=== PATIENT | female | born 1990 | race Caucasian/White ===

== ENCOUNTER 2019-05-27 10:33 | Emergency (ER) | payer BC, OTHER ==
[~2019-05-27] VITALS: Ht 152.4 cm; Wt 70.5 kg
[2019-05-27] MEDS ORDERED: NON-325T5 PO (10:41)
[2019-05-27 11:26] LABS: BASO % 0.1 % (0.0-1.0); HEMOGLOBIN 9.7 g/dl (12.0-15.5); LYMPH # 1.7 10^3/uL (1.5-6.5); MEAN CORPUSCULAR HEMOGLOBIN 33.3 pg (27.0-33.0); MEAN CORPUSCULAR HGB CONC 34.6 g/dl (32.0-36.5); MEAN CORPUSCULAR VOLUME 96.2 fl (80.0-96.0); MONO # 0.9 10^3/uL (0.0-0.8); MONO % 5.1 % (0.0-5.0); NEUTROPHILS # 14.2 10^3/uL (1.8-7.7); NEUTROPHILS % 84.3 % (36.0-66.0); PLATELET COUNT, AUTOMATED 215 10^3/uL (150-450); RED BLOOD COUNT 2.91 10^6/uL (4.00-5.40); WHITE BLOOD COUNT 16.8 10^3/uL (4.0-10.0)
[2019-05-27 11:35] LABS: APPEARANCE, URINE CLEAR (CLEAR); BACTERIA, URINE AUTO NEGATIVE (NEGATIVE); BILIRUBIN, URINE AUTO NEGATIVE (NEGATIVE); BLOOD, URINE BLOOD NEGATIVE (NEGATIVE); COLOR, URINE STRAW (YELLOW); GLUCOSE, URINE (UA) AUTO NEGATIVE (NEGATIVE); KETONE, URINE AUTO TRACE mg/dL (NEGATIVE); LEUKOCYTE ESTERASE, URINE AUTO NEGATIVE (NEGATIVE); NITRITE, URINE AUTO NEGATIVE (NEGATIVE); PROTEIN, URINE AUTO NEGATIVE (NEGATIVE); RBC, URINE AUTO 1 /HPF (0-3); SPECIFIC GRAVITY URINE AUTO 1.006 (1.002-1.035); SQUAMOUS EPITHELIAL CELL UR AU 1 /HPF (0-6); UROBILINOGEN, URINE AUTO 0.2 mg/dL (0.0-2.0); WBC, URINE AUTO 4 /HPF (0-3)
[2019-05-27 12:12] LABS: BLOOD UREA NITROGEN 8 MG/DL (7-18); CALCIUM LEVEL 8.8 MG/DL (8.5-10.1); CARBON DIOXIDE LEVEL 24 MEQ/L (21-32); CHLORIDE LEVEL 99 MEQ/L (98-107); CREATININE FOR GFR 0.64 MG/DL (0.55-1.30); GLOMERULAR FILTRATION RATE > 60.0 (>60); GLUCOSE, FASTING 154 MG/DL (70-100); HCG, SERUM QUANTITATIVE 18417 MIU/ML; POTASSIUM SERUM 3.6 MEQ/L (3.5-5.1); SODIUM LEVEL 131 MEQ/L (136-145)
[2019-05-27 13:23] LABS: ALBUMIN 3.8 GM/DL (3.2-5.2); ALT/SGPT 22 U/L (12-78); AMYLASE 35 U/L (25-115); BILIRUBIN,DIRECT 0.2 MG/DL (0.0-0.2); BILIRUBIN,TOTAL 0.8 MG/DL (0.2-1.0); LIPASE 58 U/L (73-393); TOTAL PROTEIN 6.8 GM/DL (6.4-8.2)
[2019-05-27 14:23] VITALS: BP 123/62
[2019-06-05] MEDS ORDERED: PERCOCET PO (10:00)
== END 2019-05-27 14:24 | disposition home or self-care (01) ==
LOC: M ED 10:33
DX: K59.00 Constipation, unspecified (principal); D72.829 Elevated white blood cell count, unspecified

== ENCOUNTER → 2019-05-31 | Outpatient (CLI) | payer OTHER ==
[~2019-05-31] MED LIST: IBUP80TA PO; NON-325T5 PO; PERCOCET PO; PRENTAB53 PO; VITA100T98 PO
== END ==
LOC: M LAB 11:17
PROVIDERS: ATTEND Advanced Practice Midwife
DX: N91.1 Secondary amenorrhea (principal)

== ENCOUNTER → 2019-06-02 | Outpatient (CLI) | payer OTHER | LOC: M LAB 11:47 | PROVIDERS: ATTEND Advanced Practice Midwife | DX: N91.1 Secondary amenorrhea (principal) ==

== ENCOUNTER 2019-06-04 10:20 | Day surgery (SDC) | payer OTHER ==
[~2019-06-04] VITALS: Ht 152.4 cm; Wt 72.2 kg
[2019-06-04] VITALS (7 sets, daily range): BP systolic 113–132; BP diastolic 70–78
[~2019-06-04 10:20] MED LIST changes: -IBUP80TA PO; -PERCOCET PO; -PRENTAB53 PO; -VITA100T98 PO
[2019-06-04] MEDS ORDERED: NS 1,000 ML IV ONE (10:45)
[2019-06-04 10:53] LABS: BASO % 0.1 % (0.0-1.0); HEMATOCRIT 13.2 % (36.0-47.0); LYMPH # 2.3 10^3/uL (1.5-5.0); LYMPH % 9.6 % (24.0-44.0); MEAN CORPUSCULAR HEMOGLOBIN 34.6 pg (27.0-33.0); MEAN CORPUSCULAR HGB CONC 34.1 g/dl (32.0-36.5); MEAN CORPUSCULAR VOLUME 101.5 fl (80.0-96.0); MONO # 1.1 10^3/uL (0.0-0.8); MONO % 4.9 % (0.0-5.0); NEUTROPHILS # 19.8 10^3/uL (1.5-8.5); NEUTROPHILS % 84.4 % (36.0-66.0); PLATELET COUNT, AUTOMATED 274 10^3/uL (150-450); WHITE BLOOD COUNT 23.5 10^3/uL (4.0-10.0)
[2019-06-04] MEDS ORDERED: fentaNYL 250 MCG/5 ML INJECTION (J3010) As Ordered ONE (10:57)
[2019-06-04] MEDS ORDERED: MIDAZOLAM INJ 2 MG/2 ML VIAL (J2250) As Ordered ONE (10:58)
[2019-06-04] MEDS ORDERED: LIDOCAINE 2% INJ 100 MG/5 ML SDV (FOR ANES.) As Ordered ONE ×2 (10:59→11:00)
[2019-06-04] MEDS ORDERED: ETOMIDATE INJ 20MG/10ML VIAL As Ordered ONE (10:59)
[2019-06-04 11:02] LABS: HEMOGLOBIN 4.5 g/dl (12.0-15.5)
[2019-06-04] MEDS ORDERED: SUCCINYLCHOLINE 100 MG/5 ML SYRINGE (J0330) As Ordered ONE (11:02)
[2019-06-04] MEDS ORDERED: PROPOFOL 200 MG/20 ML VIAL As Ordered ONE (11:02)
[2019-06-04 11:09] LABS: INR 1.13; PROTHROMBIN TIME 14.2 SECONDS (11.8-14.0)
[2019-06-04 11:10] LABS: PARTIAL THROMBOPLASTIN TIME 22.4 SECONDS (25.0-38.4)
[2019-06-04] MEDS ORDERED: ROCURONIUM BROMIDE 50 MG/5 ML VIAL As Ordered ONE (11:27)
[2019-06-04] MEDS ORDERED: BUPIVACAINE HCL 0.25% 30 ML VIAL As Ordered ONE (11:34)
[2019-06-04] MEDS ORDERED: CALCIUM CHLORIDE 10% 1 GM/10 ML SYR As Ordered ONE (11:35)
--- NOTE | 2019-06-04 11:46 | REP ---
Clinical: with pelvic pain and vaginal bleeding. Technique: Transabdominal and transvaginal first trimester obstetrical ultrasound with color evaluation. Findings: Bladder is unremarkable and currently measures approximately 9.1 x 8.7 x 4.7 cm. Anteverted uterus measures 7.2 x 3.4 x 4.3 cm. Endometrial complex measures 12 mm thickness and a small amount of endocervical fluid is identified. No intrauterine identified. Left ovary is normal in appearance and vascularity without torsion and measures 3.3 x 2.6 x 2.4 cm (RI 0.40). The right ovary is not visualized and there is a large amount of complex possibly hemorrhagic fluid seen within the pelvis. Impression: Given the patient's history of positive test and large complex presumed hemorrhagic fluid in the pelvis, ruptured ectopic cannot be excluded and requires immediate attention. Findings confirmed and discussed with ER. Electronically Signed by Robbin Meadows MD 06/04/2019 11:38 A
[2019-06-04] MEDS ORDERED: ONDANSETRON 4MG/2ML VIAL (J2405) As Ordered ONE (12:12)
[2019-06-04] MEDS ORDERED: METOCLOPRAMIDE INJ 10MG/2ML VIAL (J2765) As Ordered ONE (12:12)
[2019-06-04] MEDS ORDERED: ACETAMINOPHEN 1000MG 100ML IV BTL (OFIRMEV) (J0131 PER 10MG) As Ordered ONE (12:13)
[2019-06-04] MEDS ORDERED: SUGAMMADEX SODIUM 500 MG/5 ML VIAL (BRIDION) As Ordered ONE (12:13)
[2019-06-04] MEDS ORDERED: diphenhydrAMINE INJ 50MG/ML VIAL (J1200) As Ordered ONE (12:14)
[2019-06-04] MEDS ORDERED: HYDROmorphone HCL 2 MG/ML 1ML VIAL (J1170) As Ordered ONE (12:43)
--- NOTE | 2019-06-04 13:40 | REP ---
Clinical: Emergent surgical procedure without surgical count. Technique: Two portable intraoperative views of the abdomen and pelvis. Findings: Postoperative changes including subcutaneous emphysema appreciated. The bowel gas pattern is nonspecific. No organomegaly. Skeletal structures are intact. No residual foreign body material noted. Impression: No residual foreign body material noted. Electronically Signed by Robbin Meadows MD 06/04/2019 01:31 P
[2019-06-04] MEDS ORDERED: MEPERIDINE INJ 25 MG/ML VIAL (J2175) As Ordered ONE (13:44)
[2019-06-04] MEDS: MEPERIDINE INJ 25 MG/ML VIAL (J2175) IV PRN ×2 (13:45→14:02)
[2019-06-04] MEDS ORDERED: PERCOCET 5MG/325MG TAB PO PRN ×2 (14:00→14:30)
[2019-06-04] MEDS ORDERED: HYDROMORPHONE HCL 0.5 MG/ 0.5 ML SYRINGE (J1170 PER 1) IV PRN (14:00)
[2019-06-04] MEDS ORDERED: LR 1,000 ML IV SCH (14:00)
[2019-06-04] MEDS ORDERED: fentaNYL 100 MCG/2 ML INJECTION (J3010) IV PRN (14:00)
[2019-06-04] MEDS ORDERED: ONDANSETRON 4MG/2ML VIAL (J2405) IV PRN ×2 (14:00→14:30)
[2019-06-04] MEDS ORDERED: PERCOCET 5MG/325MG TAB As Ordered ONE (14:01)
[2019-06-04 14:06] LABS: HEMATOCRIT 31.6 % (36.0-47.0); MEAN CORPUSCULAR HEMOGLOBIN 31.6 pg (27.0-33.0); MEAN CORPUSCULAR HGB CONC 34.2 g/dl (32.0-36.5); MEAN CORPUSCULAR VOLUME 92.4 fl (80.0-96.0); RED BLOOD COUNT 3.42 10^6/uL (4.00-5.40); WHITE BLOOD COUNT 13.3 10^3/uL (4.0-10.0)
[2019-06-04 14:16] LABS: HEMOGLOBIN 10.8 g/dl (12.0-15.5)
[2019-06-04 14:24] LABS: INR 1.17; PROTHROMBIN TIME 14.6 SECONDS (11.8-14.0)
[2019-06-04] MEDS: LR 1,000 ML IV SCH ×2 (14:30→18:28)
[2019-06-04] MEDS ORDERED: PROMETHAZINE INJ 25 MG/ML VIAL (J2550) IV PRN (14:30)
[2019-06-04 14:33] LABS: PLATELET COUNT, AUTOMATED 76 10^3/uL (150-450)
[2019-06-04 14:39] LABS: ALBUMIN 2.7 GM/DL (3.2-5.2); ALT/SGPT 16 U/L (12-78); BILIRUBIN,TOTAL 0.9 MG/DL (0.2-1.0); BLOOD UREA NITROGEN 14 MG/DL (7-18); CALCIUM LEVEL 7.1 MG/DL (8.5-10.1); CARBON DIOXIDE LEVEL 19 MEQ/L (21-32); CHLORIDE LEVEL 107 MEQ/L (98-107); CREATININE FOR GFR 0.83 MG/DL (0.55-1.30); GLOMERULAR FILTRATION RATE > 60.0 (>60); GLUCOSE, FASTING 139 MG/DL (70-100); SODIUM LEVEL 136 MEQ/L (136-145); TOTAL PROTEIN 4.8 GM/DL (6.4-8.2)
[2019-06-04] MEDS ORDERED: PRENTAB53 PO (16:10)
[2019-06-04] MEDS ORDERED: VITA100T98 PO (16:10)
[2019-06-04] MEDS: KETOROLAC 30 MG/ML VIAL (J1885) IV SCH ×2 (16:28→22:01)
[2019-06-04] MEDS: DOCUSATE SODIUM 100 MG CAP PO SCH (22:00)
[2019-06-05 00:30] VITALS: BP 107/59
--- NOTE | 2019-06-05 00:35 | ECGEPIP ---
[facility] - ED Test Date: 2019-06-04 Pat Name: LINDA REARDON Department: Room: - Gender: Female Improvement Specialist: nas : 1990 Requested By: Cortney Juarez Order Number: [id number] Reading MD: Jesse Metz Measurements Intervals [place] Rate: 132 P: 49 NE: 128 QRS: 63 QRSD: 70 T: 32 QT: 293 QTc: 434 Interpretive Statements SINUS TACHYCARDIA Comparison tracing not on file Electronically Signed on 06-05-2019 0:35:30 EDT by Jesse Metz
[2019-06-05 04:00] VITALS: BP 115/62
[2019-06-05] MEDS: KETOROLAC 30 MG/ML VIAL (J1885) IV SCH ×2 (04:08→09:25)
[2019-06-05] MEDS: LR 1,000 ML IV SCH (06:30)
[2019-06-05 08:04] LABS: BASO % 0.2 % (0.0-1.0); EOS % 0.1 % (0.0-3.0); HEMATOCRIT 26.2 % (36.0-47.0); HEMOGLOBIN 9.3 g/dl (12.0-15.5); LYMPH # 2.3 10^3/uL (1.5-5.0); LYMPH % 20.1 % (24.0-44.0); MEAN CORPUSCULAR HEMOGLOBIN 32.1 pg (27.0-33.0); MEAN CORPUSCULAR HGB CONC 35.5 g/dl (32.0-36.5); MEAN CORPUSCULAR VOLUME 90.3 fl (80.0-96.0); MONO # 0.9 10^3/uL (0.0-0.8); MONO % 7.7 % (0.0-5.0); NEUTROPHILS # 8.3 10^3/uL (1.5-8.5); NEUTROPHILS % 71.3 % (36.0-66.0); PLATELET COUNT, AUTOMATED 125 10^3/uL (150-450); WHITE BLOOD COUNT 11.6 10^3/uL (4.0-10.0)
[2019-06-05 08:11] VITALS: BP 108/60
[2019-06-05] MEDS: DOCUSATE SODIUM 100 MG CAP PO SCH (09:24)
[2019-06-05] MEDS ORDERED: PERCOCET PO (10:00)
[2019-06-05] MEDS ORDERED: IBUP80TA PO (10:00)
--- NOTE | 2019-06-05 10:58 | RO ---
DATE OF PROCEDURE: 06/04/2019 PREOPERATIVE DIAGNOSIS: Ruptured ectopic , acute abdomen. POSTOPERATIVE DIAGNOSES: 1. Ruptured right ectopic . 2. Hemoperitoneum. 3. Pelvic adhesive disease. PROCEDURE PERFORMED: Operative laparoscopy with right salpingectomy and removal of ectopic . SURGEON: Dr. Nolberto San [employer] SET UP OPERATOR VERTICAL: None. ANESTHESIA: General endotracheal. SPECIMEN SENT TO PATHOLOGY: Right fallopian tube and ectopic . ESTIMATED BLOOD LOSS: Approximately 2 liters total, between preoperative and intraoperative blood loss. FLUIDS REPLACED: 3500 mL lactated Ringer's. DRAINS: Toledo catheter, 275 mL urine output. COMPLICATIONS: None. BLOOD PRODUCTS ADMINISTERED: 6 units packed red blood cells, 3 units of fresh frozen plasma. PREOPERATIVE ANTIBIOTICS: None indicated. INTRAOPERATIVE FINDINGS: 1. Obliterated right fallopian tube that was actively bleeding. 2. Ectopic that had extruded into the posterior cul-de-sac. 3. Severe pelvic adhesions encompassing both the right and left adnexa, however, the left fallopian tube and left ovary appeared normal. No hydrosalpinx on the left side and the right ovary was normal in appearance as well. Sidewall adhesions of the bowel were also noted on both the right and left side. 4. The uterus was normal size, shape and contour. INDICATION: The patient is a 28-year-old, (G) 1 who presented with an acute abdomen in the emergency department on 06/04/19. The patient was known to be in the first trimester by her LMP. She was severely tachycardiac at 140s to 160 beats per minute. However, her blood pressure remained normotensive and she was alert and oriented, and mentating well. She did have severe pallor on presentation. On abdominal exam, she did not tolerate the slightest touch to her abdomen in all four quadrants. A bedside ultrasound was performed and free fluid was seen. A expedited blood transfusion was activated. The patient was emergently prepped for the operating room. Informed consent was obtained. DESCRIPTION OF PROCEDURE: The patient was counseled and consented on the risks, benefits, indications, and alternatives of the procedure. Informed consent was obtained. She was taken to the operating room with an IV running and placed on the operating table in dorsal supine position. General anesthesia was administered and the airway secured without any difficulty. She was placed in the low lithotomy position. She was prepared and draped in a normal sterile fashion. A time-out was performed per protocol. Attention was turned to the pelvis. Toledo catheter was placed under sterile conditions. Sterile speculum was placed with good visualization of the cervix. The anterior lip of the cervix was grasped with ring forceps and downward traction was applied. The uterus was then sequentially dilated with Jesse dilators up to a #16. The ZUMI uterine manipulator was placed into the uterus without any difficulty. The ring forcep was removed. The sterile speculum was removed. A glove switch was performed. Attention was turned to the abdomen. 0.25% Marcaine was injected into the umbilicus. A 10 mm umbilical incision was made. Through this incision, a Veress needle was placed into the intraperitoneal cavity. Intraperitoneal placement was confirmed with ease of flow of normal saline, negative return on aspiration and a positive drop test. Opening pressure was 2 mmHg. The abdomen was insufflated with 2 liters of gas. The Veress needle was removed. A size 12 [place] laparoscopic trocar was placed through this umbilical incision into the intraperitoneal cavity without any incidental bleeding or injury. The patient was then placed in steep Trendelenburg. A massive amount of blood and clot was present in the intraperitoneal cavity, as suspected. The additional port sites were placed in the left lower abdomen, one through a 10 mm incision the other through a 5 mm incision. The 10mm suction make up editor was used to quickly suction all the blood from the intra-abdominal cavity. Upon doing so, l could see that the ectopic had extruded itself from the right fallopian tube. The right fallopian tube was obliterated from cornu to fimbria. The remnant of the fimbria was able to be elevated. The underlying mesosalpinx/broad ligament was sequentially clamped, cut and coagulated with the 5 mm LigaSure device until level of the cornu was reached. The fallopian tube was amputated at the level of the cornu and the underlying broad ligament/mesosalpinx was noted to be hemostatic and no longer bleeding anywhere. The fallopian tube was put in the posterior cul-de-sac along with the ectopic . The EndoCatch bag was used to remove both of the specimens from the abdomen. This was done without any difficulty. The specimen was sent to pathology for permanent section. Inspection of the adnexal surgical site revealed continued excellent hemostasis, an intact IP ligament and the ureter was noted to be well away from the operative site. Salima was placed over this operative site to ensure hemostasis. Inspection of the left fallopian tube and ovary revealed adhesions of the left ovary to the left fallopian tube and this was easily reduced with just blunt dissection and no bleeding was noted with this action. The left fallopian tube and ovary were hemostatic and Salima was applied. The blood was evacuated from the abdomen to the best of my ability. I tried to remove all of the blood, however, some blood was trapped within the intestines. Sufficient amount of blood was suctioned out, approximately 2 liters total, at the conclusion of the surgery. The abdomen was clear and again noted to be hemostatic. The Benedict-Ernesto technique was used to close the 10 mm incision fascia on the left side after removal of the cannula. This was done with #0 Vicryl. In similar fashion, the umbilical fascial incision was closed with the Benedict-Ernesto technique with #0 Vicryl after removal of the cannula. The remaining 5 mm cannula was removed after the gas was released from the abdomen and a final laparoscopic survey revealed excellent hemostasis. The skin incisions were then closed with #4-0 Monocryl in subcuticular fashion. All instruments were removed from the vagina. The ZUMI uterine manipulator was removed. Excellent hemostasis of the cervix was noted. Sponge, lap, needle and instrument counts were correct. The Toledo was kept in place. The patient tolerated the entire procedure well. Her vital signs significantly improved during the course of the surgery. She was transferred to the postanesthesia care unit (PACU) in good and stable condition. ANNA
[2019-06-05] MEDS ORDERED: IBUPROFEN 800 MG TAB PO SCH (17:00)
== END 2019-06-05 11:05 | disposition home or self-care (01) ==
LOC: M ED 10:20 → M SDC 10:21 → M PED 15:00 → M SDC 06-05 11:05
PROVIDERS: ATTEND Obstetrics & Gynecology
DX: O00.80 Other ectopic pregnancy without intrauterine pregnancy (principal); K66.1 Hemoperitoneum; N73.6 Female pelvic peritoneal adhesions (postinfective)
CPT/HCPCS: 36415; 36430; 59151; 74018; 76801; 80047; 80053; 84702; 85025; 85027; 85049; 85055; 85384; 85610; 85730; 86850; 86900; 86901; 86920; 86927; 88305; 93005; 96374; 96376; 99291; J0131; J0330; J1170; J1200; J1885; J2175; J2250; J2405; J2765; J3010

== ENCOUNTER → 2019-11-06 | Outpatient (CLI) | payer OTHER ==
[~2019-11-06] MED LIST changes: +IBUP80TA PO; +PERCOCET PO; +PRENTAB53 PO; +VITA100T98 PO
== END ==
LOC: M LAB 15:31
PROVIDERS: ATTEND Obstetrics & Gynecology
DX: Z32.01 Encounter for pregnancy test, result positive (principal)

== ENCOUNTER → 2019-11-07 | Outpatient (CLI) | payer OTHER | LOC: M LAB 15:37 | PROVIDERS: ATTEND Obstetrics & Gynecology | DX: Z32.01 Encounter for pregnancy test, result positive (principal) ==

== ENCOUNTER 2019-11-11 16:49 | Emergency (ER) | payer OTHER ==
[~2019-11-11] VITALS: Ht 152.4 cm; Wt 76.4 kg
[2019-11-11 18:33] LABS: BASO % 0.1 % (0.0-1.0); EOS # 0.1 10^3/uL (0.0-0.5); EOS % 1.1 % (0.0-3.0); HEMATOCRIT 39.1 % (36.0-47.0); HEMOGLOBIN 12.8 g/dl (12.0-15.5); LYMPH # 2.3 10^3/uL (1.5-5.0); LYMPH % 30.7 % (24.0-44.0); MEAN CORPUSCULAR HEMOGLOBIN 31.2 pg (27.0-33.0); MEAN CORPUSCULAR HGB CONC 32.7 g/dl (32.0-36.5); MEAN CORPUSCULAR VOLUME 95.4 fl (80.0-96.0); MONO # 0.7 10^3/uL (0.0-0.8); MONO % 8.9 % (0.0-5.0); NEUTROPHILS # 4.4 10^3/uL (1.5-8.5); NEUTROPHILS % 58.8 % (36.0-66.0); PLATELET COUNT, AUTOMATED 208 10^3/uL (150-450); WHITE BLOOD COUNT 7.5 10^3/uL (4.0-10.0)
[2019-11-11 19:02] LABS: ALBUMIN 3.8 GM/DL (3.2-5.2); ALT/SGPT 32 U/L (12-78); BILIRUBIN,DIRECT < 0.1 MG/DL (0.0-0.2); BILIRUBIN,TOTAL 0.2 MG/DL (0.2-1.0); LIPASE 136 U/L (73-393); TOTAL PROTEIN 7.3 GM/DL (6.4-8.2)
--- NOTE | 2019-11-11 19:15 | REPVR ---
PROCEDURE INFORMATION: Exam: US First Trimester, Transabdominal and US , Transvaginal Exam date and time: 11/11/2019 6:40 PM Age: 28 years old Clinical indication: Lmp or gestational age (in weeks): ? ; Antepartum complications; Bleeding; ; Prior surgery; Surgery date: 1-6 months; Surgery type: Lt salpingectomy for lt ectopic jun 2019; Additional info: + home preg test/bleeding/cramping TECHNIQUE: Imaging protocol: Real-time transabdominal obstetrical ultrasound of the maternal pelvis and a first trimester , less than 14 weeks 0 days, with image documentation. Transvaginal imaging was used for better evaluation of the fetus and adnexa. COMPARISON: No relevant prior studies available. FINDINGS: GESTATION: Gestation: No gestational sac demonstrated. No yolk sac or pole demonstrated. Heart rate: Not applicable Placenta: Unremarkable. No subchorionic bleed. Amniotic fluid: Amniotic and coelomic fluid are normal for gestational age. BIOMETRY: Estimated gestational age: 5 weeks 1 day using LMP of 10/06/2019 MATERNAL: Uterus: Uterus measures 6.5 x 3.2 x 3.9 cm. Endometrial echo complex measures 4.5 mm. Cervix: Minimal endocervical fluid. Right adnexa: Right ovary measures 3.6 x 1.8 x 1.8 cm. Solid hypoechoic hypervascular lesion in the right ovary measures 1.6 x 1.3 x 1.5 cm likely representing a corpus luteum. Left adnexa: Left ovary measures 2.8 x 1.4 x 1.3 cm. Normal flow. Intraperitoneal: No intraperitoneal free fluid. IMPRESSION: Empty uterus in a patient reportedly positive home test and weakly positive beta HCG which has decreased on 2 successive measurements. In the setting of the declining beta HCG levels with absent gestational sac and fetus the findings suggest early failure. Follow-up beta HCG levels and ultrasound suggested as clinically directed in order to confirm failure and to exclude early IUP or ectopic . Electronically signed by: Jonnie Fitzpatrick On 11/11/2019 19:15:06 PM
[2019-11-11 19:42] VITALS: BP 145/79
== END 2019-11-11 20:35 | disposition home or self-care (01) ==
LOC: M ED 16:49
DX: O26.851 Spotting complicating pregnancy, first trimester (principal); O26.891 Other specified pregnancy related conditions, first trimester; R10.2 Pelvic and perineal pain; Z3A.01 Less than 8 weeks gestation of pregnancy; Z79.899 Other long term (current) drug therapy

== ENCOUNTER → 2019-11-13 | Outpatient (CLI) | payer OTHER | LOC: M LAB 16:12 | PROVIDERS: ATTEND Physician Assistant | DX: N93.9 Abnormal uterine and vaginal bleeding, unspecified (principal) ==